=== PATIENT | male | born 1990 | race Caucasian/White ===

== ENCOUNTER 2019-09-08 18:52 | Emergency (ER) | payer OTHER ==
[~2019-09-08] VITALS: Ht 172.7 cm; Wt 79.4 kg
[2019-09-08 18:59] VITALS: BP_SYST 136
--- NOTE | 2019-09-08 19:03 | NUR ---
Patient triaged and placed in waiting room. VSS and patient appears in no acute distress at this time. Awaiting available bed, and MD notified of need for MSE.
--- NOTE | 2019-09-08 19:30 | NUR ---
call pt name in the wr,no answer.
--- NOTE | 2019-09-08 19:35 | NUR ---
call pt name in the wr,no answer.
--- NOTE | 2019-09-08 19:40 | NUR ---
call pt name in the wr,no answer.
== END 2019-09-08 19:30 | disposition left against medical advice (07) ==
LOC: SED 18:52
DX: Z20.2 Contact with and (suspected) exposure to infections with a predominantly sexual mode of transmission (principal); Z53.21 Procedure and treatment not carried out due to patient leaving prior to being seen by health care provider

== ENCOUNTER 2019-09-10 08:34 | Emergency (ER) | payer OTHER ==
[~2019-09-10] VITALS: Ht 172.7 cm; Wt 79.4 kg
[2019-09-10 08:40] VITALS: BP_SYST 152
--- NOTE | 2019-09-10 08:45 | NUR ---
Patient to ER bed 08 to gown for evaluation. Side rails up.
--- NOTE | 2019-09-10 08:47 | NUR ---
Pt brought by self, A&Ox4, pt states he would like STD check since he had unprotected sex 2 weeks ago, pt denies symptoms, denies pain, will cont to monitor.
--- NOTE | 2019-09-10 08:57 | NUR ---
Dr Haque at bedside examining patient
[2019-09-10] MEDS ORDERED: AZITHROMYCIN 250 MG TABLET PO ONE (09:15)
[2019-09-10] MEDS ORDERED: cefTRIAXone 250 MG in LIDOCAINE 1%, 20 ML MDV 0.9 ML IM ONE (09:15)
[2019-09-10 10:10] VITALS: BP_SYST 142
--- NOTE | 2019-09-10 10:10 | NUR ---
Patient given written and verbal discharge instructions and verbalizes understanding. ER MD discussed with patient the results and treatment provided. Patient in stable condition. ID arm band removed. No Rx given. Patient educated on pain management and to follow up with PMD. Pain Scale 0/10. Opportunity for questions provided and answered. Medication side effect fact sheet provided.
== END 2019-09-10 10:10 | disposition home or self-care (01) ==
LOC: SED 08:34
DX: Z11.3 Encounter for screening for infections with a predominantly sexual mode of transmission (principal); R03.0 Elevated blood-pressure reading, without diagnosis of hypertension
CPT/HCPCS: 36415; 86592; 86701; 86702; 87491; 87591; 96372; 99283; J0696; J2001; Q0144

== ENCOUNTER 2021-10-17 10:24 | Emergency (ER) | payer OTHER ==
[~2021-10-17] VITALS: Ht 170.2 cm; Wt 81.6 kg
[2021-10-17 10:41] VITALS: BP_SYST 152
[2021-10-17] MEDS ORDERED: ONDANSETRON HCL 4 MG/2 ML VIAL IVP ONE (11:30)
[2021-10-17] MEDS ORDERED: NACL 0.9% 1,000 ML IV ONE (11:30)
[2021-10-17] MEDS ORDERED: LORazepam 2 MG/ML VIAL IVP ONE (11:30)
[2021-10-17 11:41] LABS: BASOPHILS # (AUTO) 0.1 K/uL (0.0-0.2); BASOPHILS % (AUTO) 0.9 % (0.0-2.0); EOSINOPHILS % (AUTO) 0.1 % (0.0-4.0); HEMATOCRIT 41.4 % (36-54); HEMOGLOBIN 13.8 g/dL (14.0-18.0); LYMPHOCYTES # (AUTO) 0.8 K/uL (1.0-5.5); LYMPHOCYTES % (AUTO) 7.8 % (20.5-51.5); MEAN CORPUSCULAR HEMOGLOBIN 29 pg (27-31); MEAN CORPUSCULAR HGB CONC 33 % (32-36); MEAN CORPUSCULAR VOLUME 87 fL (79.0-98.0); MONOCYTES # (AUTO) 0.7 K/uL (0.0-1.0); MONOCYTES % (AUTO) 6.8 % (1.7-9.3); NEUTROPHILS # (AUTO) 8.8 K/uL (1.8-7.7); NEUTROPHILS % (AUTO) 84.4 % (40.0-70.0); PLATELET COUNT (AUTO) 260 K/uL (130-430); RED BLOOD CELL COUNT(AUTO) 4.74 MIL/uL (4.2-6.2); RED CELL DISTRIBUTION WIDTH 14.4 % (9.0-15.0); WHITE BLOOD COUNT (AUTO) 10.5 K/uL (4.8-10.8)
[2021-10-17 11:43] LABS: CALCIUM 9.9 mg/dL (8.4-11.0); CREATININE 0.71 mg/dL (0.55-1.30); POTASSIUM 3.2 mmol/L (3.5-5.1)
[2021-10-17] MEDS ORDERED: LIB25 PO (12:16)
[2021-10-17] MEDS ORDERED: ONDA-8 TL (12:18)
[2021-10-17 13:10] VITALS: BP_SYST 134
== END 2021-10-17 12:55 | disposition home or self-care (01) ==
LOC: SED 10:24
DX: F10.239 Alcohol dependence with withdrawal, unspecified (principal); Y90.9 Presence of alcohol in blood, level not specified; Z79.899 Other long term (current) drug therapy
CPT/HCPCS: 36415; 80048; 85025; 96361; 96374; 96375; 99284; J2060; J2405; J7030

== ENCOUNTER 2022-02-09 10:15 | Emergency (ER) | payer OTHER ==
[~2022-02-09] VITALS: Ht 170.2 cm; Wt 77.1 kg
[~2022-02-09 10:15] MED LIST: LIB25 PO; ONDA-8 TL
--- NOTE | 2022-02-09 10:19 | NUR ---
PT PLACED IN WR, STABLE. PARENTS WITH PT.
[2022-02-09 10:26] VITALS: BP_SYST 137
--- NOTE | 2022-02-09 11:06 | NUR ---
PT COMES TO ER WITH C/O TREMORS AFTER DRINKING 1 BOTTLE OF VODKA DAILY FOR 9 DAYS, LAST DRIK 9 DAYS AGO. PT AOX3, IN NAD. MILD FINE TREMORS NOTED TO DOMONIQUE HANDS. DENIES ANY PAIN, NO N/V/D.
[2022-02-09] MEDS ORDERED: chlordiazePOXIDE HCL 25 MG CAPSULE PO ONE (11:45)
[2022-02-09] MEDS ORDERED: ONDANSETRON 4 MG ODT TAB PO ONE (11:45)
--- NOTE | 2022-02-09 11:50 | NUR ---
MEDICATED ORDERED, WILL CONT TO MONITOR
--- NOTE | 2022-02-09 12:56 | NUR ---
PT REPORTS MALLORYBETTER, JUAN FTNG ON DISPO. ADMITS TO NOT WANTING TO STOP DRINKING. TEACHNG DONE ON ETOH ABUSE AND ITS ORDER TAKER EFFECTS, VERBALIZED UNDERSTANDING
[2022-02-09] MEDS ORDERED: LIB25 PO (13:00)
[2022-02-09 13:35] VITALS: BP_SYST 129
--- NOTE | 2022-02-09 13:36 | NUR ---
Patient given written and verbal discharge instructions and verbalizes understanding. ER MD discussed with patient the results and treatment provided. Patient in stable condition. ID arm band removed. Rx of LIBRIUM given. Patient educated on pain management and to follow up with PMD. Pain Scale . Opportunity for questions provided and answered. Medication side effect fact sheet provided.
== END 2022-02-09 13:36 | disposition home or self-care (01) ==
LOC: SED 10:15
DX: F10.129 Alcohol abuse with intoxication, unspecified (principal); F10.139 Alcohol abuse with withdrawal, unspecified; R53.1 Weakness; R11.0 Nausea; Z79.899 Other long term (current) drug therapy; Y90.6 Blood alcohol level of 120-199 mg/100 ml
CPT/HCPCS: 99283; Q0162

== ENCOUNTER 2022-09-17 | Emergency (ER) | payer OTHER ==
[~2022-09-17] VITALS: Ht 170.2 cm; Wt 72.6 kg
[2022-09-17 00:14] VITALS: BP_SYST 147
--- NOTE | 2022-09-17 00:14 | NUR ---
Patient placed in ER bed 7 for evaluation. Bed placed in lowest position with side rails up. Instructed to notify ED staff for any changes in condition or worsening of symptoms. Patient verbalized understanding.
--- NOTE | 2022-09-17 00:31 | NUR ---
Dr. Tyler at bedside examining the patient.
[2022-09-17] MEDS ORDERED: LIB25 PO (00:43)
[2022-09-17] MEDS ORDERED: ONDA8TAB60 PO (00:43)
[2022-09-17] MEDS ORDERED: LORazepam 2 MG/ML VIAL IVP ONE (00:45)
[2022-09-17] MEDS ORDERED: NACL 0.9% 1,000 ML IV ONE (00:45)
--- NOTE | 2022-09-17 00:49 | NUR ---
# 18 gauge angiocath placed to LAC. Use of asceptic technique. Opsite placed over site. Blood return noted. Flushed with 10 cc of normal saline. No evidence of infiltration noted. Patient tolerated well.
[2022-09-17 02:03] VITALS: BP_SYST 116
--- NOTE | 2022-09-17 02:14 | NUR ---
Patient given written and verbal discharge instructions and verbalizes understanding. ER MD discussed with patient the results and treatment provided. Patient in stable condition. ID arm band removed. IV catheter removed intact and dressing applied, no active bleeding. Rx of LIBRIUM AND ONDANSETRON given. Patient educated on pain management and to follow up with PMD. Pain Scale 0/10. Opportunity for questions provided and answered. Medication side effect fact sheet provided.
== END 2022-09-17 02:14 | disposition home or self-care (01) ==
LOC: SED
DX: F10.239 Alcohol dependence with withdrawal, unspecified (principal); R11.2 Nausea with vomiting, unspecified; R68.83 Chills (without fever); Z79.899 Other long term (current) drug therapy; Y90.6 Blood alcohol level of 120-199 mg/100 ml
CPT/HCPCS: 99283; 96374; J2060

== ENCOUNTER 2023-05-04 09:32 | Emergency (ER) | payer OTHER ==
[~2023-05-04] VITALS: Ht 172.7 cm; Wt 72.6 kg
[2023-05-04 09:32] VITALS: BP_SYST 147; PULSE 116; RESP 19; TEMP 97.8; O2SAT 94
[~2023-05-04 09:32] MED LIST changes: +ONDA8TAB60 PO
[2023-05-04] MEDS ORDERED: IPRATROPIUM/ALBUTEROL SULFATE 3 ML AMPUL.NEB (DUONEB) INH ONE (10:00)
[2023-05-04 10:43] LABS: INFLUENZA TYPE A Negative (NEGATIVE)
[2023-05-04 10:45] LABS: STREPTOCOCCUS A SCREEN (RAPID) NEGATIVE (NEGATIVE)
[2023-05-04 10:45] LABS: EOSINOPHILS # (AUTO) 0.1 K/uL (0.0-0.4); EOSINOPHILS % (AUTO) 1.1 % (0.0-4.0); HEMATOCRIT 42.3 % (36-54); HEMOGLOBIN 13.7 g/dL (14.0-18.0); LYMPHOCYTES # (AUTO) 1.4 K/uL (1.0-5.5); LYMPHOCYTES % (AUTO) 16.4 % (20.5-51.5); MEAN CORPUSCULAR HEMOGLOBIN 30 pg (27-31); MEAN CORPUSCULAR HGB CONC 32 % (32-36); MEAN CORPUSCULAR VOLUME 92 fL (79.0-98.0); MONOCYTES # (AUTO) 0.9 K/uL (0.0-1.0); MONOCYTES % (AUTO) 10.8 % (1.7-9.3); NEUTROPHILS # (AUTO) 5.9 K/uL (1.8-7.7); PLATELET COUNT (AUTO) 285 K/uL (130-430); RED BLOOD CELL COUNT(AUTO) 4.59 MIL/uL (4.2-6.2); WHITE BLOOD COUNT (AUTO) 8.4 K/uL (4.8-10.8)
[2023-05-04 10:46] LABS: INFLUENZA TYPE B POSITIVE (NEGATIVE)
[2023-05-04 10:48] LABS: BASOPHILS % (AUTO) 0.8 % (0.0-2.0); NEUTROPHILS % (AUTO) 70.9 % (40.0-70.0)
[2023-05-04 10:49] LABS: BASOPHILS # (AUTO) 0.1 K/uL (0.0-0.2)
[2023-05-04 11:03] LABS: ANION GAP 12 (5-15); CARBON DIOXIDE 28 mmol/L (23-29); CHLORIDE 102 mmol/L (98-107); CREATININE 0.63 mg/dL (0.55-1.30); GFR AFRICAN AMERICAN 187 mL/min (>90); GFR NON AFRICAN-AMERICAN 155 mL/min (>90); GLUCOSE 149 mg/dL (74-106); POTASSIUM 3.5 mmol/L (3.5-5.1); SODIUM SERUM 142 mmol/L (136-145); UREA NITROGEN, BLOOD 6 mg/dL (8-21)
[2023-05-04] MEDS ORDERED: OSEL75CA PO (11:25)
[2023-05-04] MEDS ORDERED: ALBMDI INH (11:56)
[2023-05-04 12:10] VITALS: BP_SYST 120; PULSE 100; RESP 20; TEMP 98.6; O2SAT 99
== END 2023-05-04 12:04 | disposition home or self-care (01) ==
LOC: SED 09:32
DX: J10.1 Influenza due to other identified influenza virus with other respiratory manifestations (principal); R07.89 Other chest pain; B34.9 Viral infection, unspecified; R05.9 Cough, unspecified; R53.1 Weakness; E11.9 Type 2 diabetes mellitus without complications; F17.200 Nicotine dependence, unspecified, uncomplicated; Z79.899 Other long term (current) drug therapy; Z20.822 Contact with and (suspected) exposure to COVID-19
CPT/HCPCS: 36415; 71045; 80048; 83880; 84484; 85025; 86403; 87081; 93005; 94640; 94760; 99285

== ENCOUNTER 2023-11-23 00:58 | Inpatient (IN) | payer OTHER ==
[~2023-11-23] VITALS: Ht 170.2 cm; Wt 74.4 kg
[~2023-11-23 00:58] MED LIST changes: +ALBMDI INH; +CHLO25CA11 PO; -LIB25 PO; +OSEL75CA PO
[2023-11-23 01:02] VITALS: BP_SYST 142; PULSE 124; RESP 18; TEMP 99.2; O2SAT 94
[2023-11-23] MEDS: LORazepam 1 MG TABLET PO ONE (01:30)
[2023-11-23 01:41] LABS: BASOPHILS # (AUTO) 0.2 K/uL (0.0-0.2); BASOPHILS % (AUTO) 1.3 % (0.0-2.0); EOSINOPHILS # (AUTO) 0.2 K/uL (0.0-0.4); EOSINOPHILS % (AUTO) 1.4 % (0.0-4.0); HEMATOCRIT 40.1 % (36-54); HEMOGLOBIN 13.8 g/dL (14.0-18.0); LYMPHOCYTES # (AUTO) 2.7 K/uL (1.0-5.5); LYMPHOCYTES % (AUTO) 22.3 % (20.5-51.5); MEAN CORPUSCULAR HEMOGLOBIN 31 pg (27-31); MEAN CORPUSCULAR HGB CONC 34 % (32-36); MEAN CORPUSCULAR VOLUME 91 fL (79.0-98.0); MONOCYTES # (AUTO) 1.3 K/uL (0.0-1.0); MONOCYTES % (AUTO) 11.1 % (1.7-9.3); NEUTROPHILS # (AUTO) 7.7 K/uL (1.8-7.7); NEUTROPHILS % (AUTO) 63.9 % (40.0-70.0); PLATELET COUNT (AUTO) 226 K/uL (130-430); RED BLOOD CELL COUNT(AUTO) 4.42 MIL/uL (4.2-6.2); RED CELL DISTRIBUTION WIDTH 13.6 % (9.0-15.0)
[2023-11-23 01:57] LABS: ALANINE AMINOTRANSFERASE 111 U/L (12-78); ALBUMIN 4.3 g/dL (3.4-4.8); ANION GAP 12 (5-15); ASPARTATE AMINOTRANSFERASE 195 U/L (10-37); BILIRUBIN,DIRECT 0.4 mg/dL (0.0-0.3); CALCIUM 8.8 mg/dL (8.4-11.0); CARBON DIOXIDE 28 mmol/L (23-29); CHLORIDE 100 mmol/L (98-107); CREATININE 0.59 mg/dL (0.55-1.30); GFR AFRICAN AMERICAN 202 mL/min (>90); GFR NON AFRICAN-AMERICAN 167 mL/min (>90); GLUCOSE 134 mg/dL (74-106); POTASSIUM 3.2 mmol/L (3.5-5.1); SODIUM SERUM 140 mmol/L (136-145); TOTAL BILIRUBIN 0.8 mg/dL (0.0-1.0); TOTAL PROTEIN, SERUM 8.9 g/dL (6.4-8.3); UREA NITROGEN, BLOOD 4 mg/dL (8-21)
[2023-11-23] MEDS: NACL 0.9% 1,000 ML IV ONE (02:27)
[2023-11-23] MEDS ORDERED: MAGNESIUM SULFATE 1 GM/2 ML VIAL ONE (04:02)
[2023-11-23] MEDS ORDERED: THIAMINE HCL 200 MG/2 ML VIAL ONE (04:02)
[2023-11-23] MEDS ORDERED: MVI 10 ML VIAL IV ONE (04:02)
[2023-11-23] MEDS ORDERED: FOLIC ACID 5 MG/ML VIAL IV ONE (04:02)
[2023-11-23] MEDS: LORazepam 2 MG/ML VIAL IVP ONE ×2 (04:05→05:46)
[2023-11-23] MEDS: FOLIC ACID 1 MG, THIAMINE HCL 100 MG, MAGNESIUM SULFATE 1 GM, MVI 10 ML in NACL 0.9% 1,... IV ONE (04:22)
[2023-11-23] MEDS ORDERED: HYDROcodone/ACETAMIN 5-325 MG TAB (NORCO/ VICODIN) PO PRN (05:30)
[2023-11-23] MEDS ORDERED: LORazepam 2 MG/ML VIAL IVP PRN (05:30)
[2023-11-23] MEDS ORDERED: ACETAMINOPHEN 325 MG TABLET PO PRN (05:30)
[2023-11-23] MEDS ORDERED: NALOXONE HCL 0.4 MG/ML AMP (NARCAN) IVP PRN ×2 (05:30)
[2023-11-23] MEDS ORDERED: HYDROcodone/ACETAMIN 10-325 MG TAB PO PRN (05:30)
[2023-11-23] MEDS ORDERED: IPRATROPIUM BROM 0.5 MG/2.5 ML VIAL.NEB (ATROVENT) INH PRN (05:30)
[2023-11-23] MEDS ORDERED: ALBUTEROL SULFATE 0.083% 2.5 MG/3 ML VIAL.NEB INH PRN (05:30)
[2023-11-23] MEDS: chlordiazePOXIDE HCL 25 MG CAPSULE PO PRN (05:45)
[2023-11-23 05:57] VITALS: BP_SYST 138; PULSE 122; O2SAT 93
[2023-11-23] MEDS: OSELTAMIVIR PHOSPHATE 75 MG CAPSULE PO SCH (09:00)
[2023-11-23 09:12] VITALS: BP_SYST 123; PULSE 106; RESP 18; TEMP 98.2; O2SAT 97
[2023-11-23 12:15] VITALS: BP_SYST 136; PULSE 78; RESP 18; TEMP 98.6; O2SAT 98
[2023-11-23 16:15] VITALS: BP_SYST 151; PULSE 74; RESP 19; TEMP 97.6; O2SAT 97
[2023-11-23 19:00] VITALS: BP_SYST 108; PULSE 100; RESP 19; TEMP 97.7; O2SAT 97
[2023-11-24] VITALS (7 sets, daily range): BP systolic 113–135; PULSE 76–99; RESP 17–20; TEMP 97.6–98.8; O2SAT 96–99
[2023-11-24 07:09] LABS: CALCIUM 8.5 mg/dL (8.4-11.0); CREATININE 0.48 mg/dL (0.55-1.30); POTASSIUM 3.9 mmol/L (3.5-5.1)
[2023-11-24] MEDS ORDERED: THIA100T70 PO (07:16)
[2023-11-24] MEDS ORDERED: FOLI-43 PO (07:16)
[2023-11-24] MEDS ORDERED: MULT-1089 PO (07:16)
[2023-11-24 07:48] LABS: BASOPHILS # (AUTO) 0.1 K/uL (0.0-0.2); BASOPHILS % (AUTO) 1.3 % (0.0-2.0); EOSINOPHILS # (AUTO) 0.1 K/uL (0.0-0.4); EOSINOPHILS % (AUTO) 1.6 % (0.0-4.0); HEMATOCRIT 39.2 % (36-54); HEMOGLOBIN 13.3 g/dL (14.0-18.0); LYMPHOCYTES # (AUTO) 1.3 K/uL (1.0-5.5); LYMPHOCYTES % (AUTO) 13.9 % (20.5-51.5); MEAN CORPUSCULAR HEMOGLOBIN 31 pg (27-31); MEAN CORPUSCULAR HGB CONC 34 % (32-36); MEAN CORPUSCULAR VOLUME 93 fL (79.0-98.0); MONOCYTES % (AUTO) 10.7 % (1.7-9.3); NEUTROPHILS # (AUTO) 6.6 K/uL (1.8-7.7); NEUTROPHILS % (AUTO) 72.5 % (40.0-70.0); PLATELET COUNT (AUTO) 165 K/uL (130-430); RED BLOOD CELL COUNT(AUTO) 4.23 MIL/uL (4.2-6.2); RED CELL DISTRIBUTION WIDTH 13.4 % (9.0-15.0); WHITE BLOOD COUNT (AUTO) 9.1 K/uL (4.8-10.8)
[2023-11-24] MEDS: ONDANSETRON HCL 4 MG/2 ML VIAL IVP PRN (12:33)
== END 2023-11-24 16:10 | disposition home or self-care (01) | DRG 392 ==
LOC: SED 00:58 → STU 03:25
PROVIDERS: ADMIT Preventive Medicine Preventive Medicine/Occupational Environmental Medicine; ATTEND Preventive Medicine Preventive Medicine/Occupational Environmental Medicine
DX: R10.9 Unspecified abdominal pain (principal); F10.139 Alcohol abuse with withdrawal, unspecified; R07.89 Other chest pain; K70.9 Alcoholic liver disease, unspecified; F17.290 Nicotine dependence, other tobacco product, uncomplicated; F10.129 Alcohol abuse with intoxication, unspecified; K76.82 Hepatic encephalopathy; E87.6 Hypokalemia; R73.9 Hyperglycemia, unspecified; Z79.899 Other long term (current) drug therapy
CPT/HCPCS: 36415; 76700; 80048; 80076; 84484; 85025; 93005; 93306; 94070; 94760; 99285; G0378; J2060; J2405; J3411; J3475; J3490

== ENCOUNTER 2024-03-22 00:54 | Emergency (ER) | payer OTHER ==
[~2024-03-22] VITALS: Ht 172.7 cm; Wt 77.1 kg
[~2024-03-22 00:54] MED LIST changes: +FOLI-43 PO; +MULT-1089 PO; +THIA100T70 PO
[2024-03-22 01:02] VITALS: BP_SYST 141; PULSE 125; RESP 20; TEMP 98.1; O2SAT 96
[2024-03-22] MEDS: NACL 0.9% 1,000 ML IV ONE ×2 (01:57→04:37)
[2024-03-22] MEDS: LORazepam 2 MG/ML VIAL IVP ONE (02:02)
[2024-03-22 02:05] LABS: BASOPHILS # (AUTO) 0.1 K/uL (0.0-0.2); BASOPHILS % (AUTO) 0.6 % (0.0-2.0); EOSINOPHILS # (AUTO) 0.1 K/uL (0.0-0.4); EOSINOPHILS % (AUTO) 1.1 % (0.0-4.0); HEMATOCRIT 39.6 % (36-54); HEMOGLOBIN 13.8 g/dL (14.0-18.0); LYMPHOCYTES # (AUTO) 3.2 K/uL (1.0-5.5); LYMPHOCYTES % (AUTO) 33.9 % (20.5-51.5); MEAN CORPUSCULAR HEMOGLOBIN 31 pg (27-31); MEAN CORPUSCULAR HGB CONC 35 % (32-36); MEAN CORPUSCULAR VOLUME 89 fL (79.0-98.0); MONOCYTES # (AUTO) 0.9 K/uL (0.0-1.0); MONOCYTES % (AUTO) 9.5 % (1.7-9.3); NEUTROPHILS # (AUTO) 5.2 K/uL (1.8-7.7); NEUTROPHILS % (AUTO) 54.9 % (40.0-70.0); PLATELET COUNT (AUTO) 228 K/uL (130-430); RED BLOOD CELL COUNT(AUTO) 4.47 MIL/uL (4.2-6.2); RED CELL DISTRIBUTION WIDTH 14.1 % (9.0-15.0); WHITE BLOOD COUNT (AUTO) 9.5 K/uL (4.8-10.8)
[2024-03-22 02:31] LABS: BILIRUBIN,DIRECT 0.2 mg/dL (0.0-0.3); CALCIUM 8.6 mg/dL (8.4-11.0); CREATININE 1.06 mg/dL (0.55-1.30); TOTAL BILIRUBIN 0.8 mg/dL (0.0-1.0); TOTAL PROTEIN, SERUM 8.1 g/dL (6.4-8.3)
[2024-03-22 02:37] LABS: POTASSIUM 2.9 mmol/L (3.5-5.1)
[2024-03-22] MEDS: POTASSIUM CHLORIDE 20 MEQ/PKT PACKET PO ONE (03:09)
[2024-03-22 07:10] VITALS: BP_SYST 125; PULSE 109; RESP 23; TEMP 98.1; O2SAT 99
== END 2024-03-22 07:10 | disposition home or self-care (01) ==
LOC: SED 00:54
DX: F10.129 Alcohol abuse with intoxication, unspecified (principal); R11.0 Nausea; F41.9 Anxiety disorder, unspecified; R25.2 Cramp and spasm; Z79.899 Other long term (current) drug therapy; Z79.2 Long term (current) use of antibiotics; Y90.7 Blood alcohol level of 200-239 mg/100 ml
CPT/HCPCS: 99285; 96374; 96361; 80076; 80048; 83690; 85025; 36415; G0482; J2060; J7030